=== PATIENT | female | born 1970 | race Caucasian/White ===

== ENCOUNTER 2021-01-23 08:28 | Outpatient (CLI) | payer OTHER, SELFPAY | END 2021-01-23 08:29 | disposition home or self-care (01) | LOC: WOUND 08:29 | PROVIDERS: Visit Provider Emergency Medicine | DX: S81.852A Open bite, left lower leg, initial encounter (principal); W55.01XA Bitten by cat, initial encounter | CPT/HCPCS: 11042; G0463 ==

== ENCOUNTER 2021-01-28 13:30 | Outpatient (CLI) | payer OTHER, SELFPAY ==
--- NOTE | 2021-01-28 | XR_ITS ---
WS: [id number] TIBIA-FIBULA LEFT TECHNIQUE: 2 views of the left tibia-fibula CLINICAL INFORMATION: NON PRESSURE CHRONIC ULCER LEFT LOWER LEG WITH FAT LAYERS EX COMPARISON: None. FINDINGS: No evidence of acute fracture dislocation. Normal tibiotalar joint. Normal visualized tibia and fibul a. Soft tissue edema lower leg. XR/XR tibia fibula LT 2V [id number] IMPRESSION: Soft tissue edema lower leg. No evidence of fracture or osteomyelitis.
== END 2021-01-28 13:31 | disposition home or self-care (01) ==
PROVIDERS: Visit Provider Emergency Medicine
DX: L97.822 Non-pressure chronic ulcer of other part of left lower leg with fat layer exposed (principal); R60.0 Localized edema
CPT/HCPCS: 73590

== ENCOUNTER 2021-01-30 08:51 | Outpatient (CLI) | payer OTHER, SELFPAY | END 2021-01-30 08:52 | disposition home or self-care (01) | LOC: WOUND 08:51 | PROVIDERS: Visit Provider Emergency Medicine | DX: L97.821 Non-pressure chronic ulcer of other part of left lower leg limited to breakdown of skin (principal); Z09 Encounter for follow-up examination after completed treatment for conditions other than malignant neoplasm | CPT/HCPCS: 99212; A6212 ==

== ENCOUNTER 2021-05-27 14:11 | Emergency (ER) | payer OTHER, SELFPAY ==
--- NOTE | 2021-05-27 14:12 | XR_ITS ---
WS: [id number] Portable AP upright chest, 05/27/2021 Clinical Data: chest pain Comparison: PA and lateral chest, 03/28/2014. Findings: No nodules, masses or effusions are seen. The heart is normal. The pulmonary vascularity is not increased. No pneumonia or pneumothorax is seen. XR/XR chest 1V portable [id number] Impression: Negative chest.
--- NOTE | 2021-05-27 14:12 | ECG_ITS ---
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 Measurements Intervals [place] Rate: 74 P: 49 [place]: 139 QRS: -15 QRSD: 88 T: -2 QT: 395 QTc: 439 Interpretive Statements SINUS RHYTHM VOLTAGE CRITERIA FOR LVH [MEETS CRITERIA IN ONE OF: R(aVL), S(V1), R(V5), R(V5/V6)+S(V1)] Compared to ECG 05/31/2014 10:31:27 Left ventricular hypertrophy now present Electronically Signed On 05-27-2021 17:20:08 CHECK PROCESSING CLERK by Karis Stewart M.D. [email or web address] [email or web address].[employer]aw[email or web address]/store/[id number]
[2021-05-27 14:23] VITALS: BP 119/78; PULSE 71; RESP 16; TEMP 36.3; O2SAT 100; BMI 24.2
--- NOTE | 2021-05-27 16:12 | ECG_ITS ---
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 Measurements Intervals [place] Rate: 64 P: 50 GA: 133 QRS: -12 QRSD: 97 T: 1 QT: 408 QTc: 424 Interpretive Statements SINUS RHYTHM VOLTAGE CRITERIA FOR LVH [MEETS CRITERIA IN ONE OF: R(aVL), S(V1), R(V5), R(V5/V6)+S(V1)] Compared to ECG 05/27/2021 14:19:59 No significant changes Electronically Signed On 05-27-2021 17:24:29 ORTHOPEDIC PHYSICIAN ASSISTANT by Karis Stewart M.D. [id number]
[2021-05-27 16:42] LABS: Basophils # 0.1 10^3/uL (0.0-0.1); Basophils % 0.9 %; Eosinophils # 0.1 10^3/uL (0.0-0.8); Eosinophils % 0.7 %; Hemoglobin 13.8 g/dL (11.5-15.3); Lymphocytes # 2.4 10^3/uL (0.8-4.8); Lymphocytes % 34.5 %; Mean Corpuscular HGB Conc 33.7 g/dL (30.0-36.0); Mean Corpuscular Hemoglobin 31.8 pg (28.0-34.0); Mean Corpuscular Volume 94.5 fl (81-99); Mean Platelet Volume 10.5 fL (7.4-10.4); Monocytes # 0.4 10^3/uL (0.2-0.9); Monocytes % 5.8 %; Neutrophils # 4.01 10^3/uL (1.8-7.7); Neutrophils % 57.8 %; Nucleated Red Blood Cells % 0 %; Platelet Count 243 10^3/cmm (130-400); Red Blood Count 4.34 10^6/uL (4.1-5.3); Red Cell Distribution Width 13.1 % (12.1-15.1); White Blood Count 6.9 10^3/uL (4.0-10.0)
[2021-05-27 16:59] VITALS: BP 116/73; PULSE 74; RESP 18; O2SAT 99
[2021-05-27 17:01] LABS: Troponin(5th) Baseline 6 ng/L (0-10)
[2021-05-27 17:02] LABS: Alanine Aminotransferase 29 U/L (0-33); Albumin Level 4.7 g/dL (3.5-5.2); Alkaline Phosphatase 99 IU/L (35-105); Anion Gap 14.6 (5-19); Aspartate Amino Transferase 24 U/L (0-32); Blood Urea Nitrogen 14 mg/dL (6-20); Carbon Dioxide 25 mmol/L (22-29); Chloride 99 mmol/L (98-107); Creatinine Clr Calc Pharmacy 84.3271; Globulin 2.4 g/dL (1.3-4.6); Glomerular Filtration Rate 76.2 mL/min (90-130); Glucose 100 mg/dL (65-115); Osmolality Calculated 281 mOsm/kg (285-295); Potassium 3.6 mmol/L (3.5-5.1); Sodium 135 mmol/L (136-145); Total Bilirubin 0.5 mg/dL (0.15-1.2); Total Protein 7.1 g/dL (6.6-8.7)
--- NOTE | 2021-05-27 17:15 | W.ED.ARRPALP ---
HPI - Arrhythmia/Palpitations General: Chief Complaint: Arrhythmia/Palpitations Stated Complaint: chest pain Time Seen by Provider: 05/27/21 17:02 Source: patient History of Present Illness: Patient comes in today with complaints of 3-week history of irregular heartbeat. Patient reports that her heart rate gets real slow at times. Patient has had a history of ablation due to atrial tachycardia. Patient appears well. Patient appears in no acute distress. Patient reports it was noted at the primary care office that her heart rate was erratic. Patient appears nontoxic. Patient appears in no pain. Review of Systems Const: Reports: fatigue Card: Reports: irregular heart rhythm Resp: Reports: dyspnea (Exertion) Physical Exam Const: COMMON NORMALS: no limitations and healthy appearing HENMT: THROAT: posterior oropharynx normal Neck/C-Spine: COMMON NORMALS: Thyroid normal THYROID: Thyroid normal Lymph: LYMPHATIC: no lymphadenopathy noted Resp: COMMON NORMALS: clear to auscultation bilaterally EFFORT & INSPECTION: Yes able to speak in complete sentences AUSCULTATION: clear to auscultation bilaterally Cardio: COMMON NORMALS: regular rate, regular rhythm and S1 normal heart sound present RATE: regular rate RHYTHM: regular rhythm HEART SOUNDS: S1 normal heart sound present GI: COMMON NORMALS: Soft to palpation PALPATION: Yes Soft to palpation and No Tenderness to palpation present (GI) Extremity: COMMON NORMALS: no clubbing, cyanosis or edema and no pedal edema Skin: COMMON NORMALS: no rashes or lesions noted GENERAL SKIN EXAM: no rashes or lesions noted Course Vital Signs: Vital signs: Vital Signs Temperature 97.3 F L 05/27/21 14:23 Pulse Rate 74 05/27/21 16:59 Respiratory Rate 18 05/27/21 16:59 Blood Pressure 116/73 05/27/21 16:59 Pulse Oximetry 99 05/27/21 16:59 MDM - Arrhythmia/Palpitations Medical Decision Making Patient comes in today with complaints of irregular heart rate with some dyspnea. Patient reports symptoms for the last 3 weeks. On exam lungs were clear to auscultation. Heart rate was regular. No edema was noted in the extremities. Differential diagnosis includes palpitations, anxiety, atrial fibrillation. EKG showed a sinus arrhythmia with a rate in the 70s. Laboratory values were unremarkable. Reviewed exam with patient with recommendations for follow-up with cardiology and Holter monitor. Patient reported understanding and agreed to plan. Case management was requested to assist with cardiology follow-up and arrangement for Holter monitor. Differential Diagnosis Likely palpitations, anxiety and artial fibrillation Lab Data : 05/27/21 16:28 05/27/21 16: Radiology Impressions Chest X-Ray 05/27/21 14:12 Impression: Negative chest. Laboratory Results WBC 6.9 10^3/uL (4.0-10.0) 05/27/21 16: RBC 4.34 10^6/uL (4.1-5.3) 05/27/21 16: Hgb 13.8 g/dL (11.5-15.3) 05/27/21 16: Hct 41.0 % (37.0-47.0) 05/27/21 16: MCV 94.5 fl (81-99) 05/27/21 16: MCH 31.8 pg (28.0-34.0) 05/27/21 16: MCHC 33.7 g/dL (30.0-36.0) 05/27/21 16: RDW 13.1 % (12.1-15.1) 05/27/21 16: Plt Count 243 10^3/cmm (130-400) 05/27/21 16: MPV 10.5 fL (7.4-10.4) H 05/27/21 16: Neut % (Auto) 57.8 % 05/27/21 16: Lymph % (Auto) 34.5 % 05/27/21 16: Coffee % (Auto) 5.8 % 05/27/21 16: Eos % (Auto) 0.7 % 05/27/21 16: Baso % (Auto) 0.9 % 05/27/21 16: Neut # (Auto) 4.01 10^3/uL (1.8-7.7) 05/27/21 16: Lymph # (Auto) 2.4 10^3/uL (0.8-4.8) 05/27/21 16: Coffee # (Auto) 0.4 10^3/uL (0.2-0.9) 05/27/21 16: Eos # (Auto) 0.1 10^3/uL (0.0-0.8) 05/27/21 16:28 Baso # (Auto) 0.1 10^3/uL (0.0-0.1) 05/27/21 16: Nucleated RBC % (auto) 0 % 05/27/21 16: Nucleated RBCs # 0.0 /100WBC 05/27/21 16:28 Sodium 135 mmol/L (136-145) L 05/27/21 16: Potassium 3.6 mmol/L (3.5-5.1) 05/27/21 16: Chloride 99 mmol/L (98-107) 05/27/21 16: Carbon Dioxide 25 mmol/L (22-29) 05/27/21 16: Anion Gap 14.6 (5-19) 05/27/21 16: BUN 14 mg/dL (6-20) 05/27/21 16: Creatinine 0.8 mg/dL (0.5-0.9) 05/27/21 16: GFR Calculation 76.2 mL/min (90-130) L 05/27/21 16: Glucose 100 mg/dL (65-115) 05/27/21 16: Calculated Osmolality 281 mOsm/kg (285-295) L 05/27/21 16: Calcium 9.0 mg/dL (8.5-10.5) 05/27/21 16: Total Bilirubin 0.5 mg/dL (0.15-1.2) 05/27/21 16: AST 24 U/L (0-32) 05/27/21 16: ALT 29 U/L (0-33) 05/27/21 16:28 Alkaline Phosphatase 99 IU/L (35-105) 05/27/21 16:28 Troponin T Baseline 6 ng/L (0-10) 05/27/21 16:28 Total Protein 7.1 g/dL (6.6-8.7) 05/27/21 16: Albumin 4.7 g/dL (3.5-5.2) 05/27/21 16: Globulin 2.4 g/dL (1.3-4.6) 05/27/21 16:28 Discharge Plan Discharge Patient Disposition: Home Clinical Impression: Sinus arrhythmia Condition: Stable Discharge Orders: Discharge ED (Routine); Ordered 05/27/21 Ordered By: Agustín Wang Discharge Diet: Usual diet Discharge Activity: Increase activity as tolerated Patient Instructions: Dyspnea (ED) Activity Restrictions/Additional Instructions: Home and rest. Case management will contact you tomorrow with assignment of Holter monitor, and cardiology follow-up. You will be wearing the Holter monitor for 7 days. Cardiology will most likely follow-up after the Holter monitor results. Return to the ER for worsening symptoms or new concerns. Follow-up with primary care as needed. Coding Level of Care Code ED Prep Cook for Chriss Vazquez
--- NOTE | 2021-05-30 08:15 | DCPLANNER ---
Addendum entered by Tsering Romero 06/27/21 09:27: Patient had a follow up appointment scheduled for 06.16.21 with [facility] - patient did attend appointment. Addendum entered by Tsering Romero 06/06/21 13:35: Patient had a follow up appointment scheduled for 06.02.21 with [facility] care - patient did attend appointment. Original Note: customer service manager had message to schedule a follow up appointment for patient with [facility] care for a holter monitor. customer service manager faxed a signed order to heart care, who will call patient with appointment information. customer service manager also had message to schedule a follow up appointment for patient with [facility]. customer service manager called [facility], spoke with Abbie, gave clinic patients information. A follow up appointment was scheduled for Wednesday, June 16, 2021 at 11:[address] Stewart. customer service manager attempted to call patient at phone number [phone], unable to speak with patient at this time, a voicemail was left for patient to return casey saw operator phone call.
== END 2021-05-27 17:31 | disposition home or self-care (01) ==
PROVIDERS: Physician Assistant; Emergency Provider Nurse Practitioner Family
DX: I49.8 Other specified cardiac arrhythmias (principal)
CPT/HCPCS: 71045; 80053; 84484; 85025; 93005; 99283

== ENCOUNTER 2022-10-27 09:50 | Outpatient (CLI) | payer OTHER, SELFPAY ==
--- NOTE | 2022-10-27 09:54 | MM_ITS ---
WS: [id number] VIEWS: MLO and CC views both breasts. 3D digital tomosynthesis is also included in this exam. Comparison made with prior exam of 01/18/2019. Findings: There was no sign of mass, architectural distortion or suspicious calcification in either breast. Th ere are areas of scattered fibroglandular density MM/[place] [id number] Impression: BI-RADS: 2-Benign finding. FOLLOW-UP: 1 Year Follow-up This mammogram was also analyzed by the Computer Aided Detection System R2 Imag e Health Communications Specialist.
== END 2022-10-27 09:51 | disposition home or self-care (01) ==
PROVIDERS: PCP Nurse Practitioner Family; Visit Provider Nurse Practitioner Family
DX: Z12.31 Encounter for screening mammogram for malignant neoplasm of breast (principal)
CPT/HCPCS: 77063; 77067

== ENCOUNTER 2024-09-03 16:21 | Emergency (ER) | payer OTHER, SELFPAY ==
[2024-09-03 16:27] VITALS: BP 123/88; PULSE 128; RESP 16; TEMP 36.6; O2SAT 97; BMI 25.8
--- NOTE | 2024-09-03 16:44 | XRR_ITS ---
PROCEDURE INFORMATION: Exam: XR Chest Exam date and time: 09/03/2024 5:46 PM Age: 54 years old Clinical indication: Chest pressure; Prior surgery; Surgery date: 6+ months; Chest pain; HX afib with ablation TECHNIQUE: Imaging protocol: Radiologic exam of the chest. Views: 1 view. COMPARISON: CR XR chest 1V portable [id number] 05/27/2021 2:34 PM FINDINGS: Lungs: Unremarkable. No consolidation. Pleural spaces: Unremarkable. No pleural effusion. No pneumothorax. Heart/Mediastinum: Unremarkable. No cardiomegaly. Bones/joints: Unremarkable. XR/XR chest 1V portable [id number] IMPRESSION: No acute findings.
--- NOTE | 2024-09-03 16:44 | ECG_ITS ---
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 Measurements Intervals [place] Rate: 129 P: 46 OR: 112 QRS: -10 QRSD: 85 T: 52 QT: 334 QTc: 490 Interpretive Statements SINUS TACHYCARDIA WITH SHORT OR INTERVAL VOLTAGE CRITERIA FOR LVH [MEETS CRITERIA IN ONE OF: R(aVL), S(V1), R(V5), R(V5/V6)+S(V1)] POSSIBLE SEPTAL MYOCARDIAL INFARCTION , OF INDETERMINATE AGE [30 ms Q WAVE IN V1/V2] Compared to ECG 05/27/2021 16:23:35 Short OR interval now present Myocardial infarct finding now present Sinus rhythm no longer present Electronically Signed On 09-04-2024 09:17:06 CDT by Cale Terry M.D. [id number]
[2024-09-03 17:20] LABS: Basophils % 0.4 %; Eosinophils % 0.2 %; Hematocrit 50.1 % (36-47); Lymphocytes # 1.4 10^3/uL (0.8-4.8); Lymphocytes % 27.9 %; Mean Corpuscular HGB Conc 34.1 g/dL (30-55); Mean Corpuscular Hemoglobin 30.6 pg (27-33); Mean Corpuscular Volume 89.6 fl (85-98); Mean Platelet Volume 10.1 fL (7.4-10.4); Monocytes # 0.6 10^3/uL (0.2-0.9); Monocytes % 11.9 %; Neutrophils # 3.04 10^3/uL (1.8-7.7); Neutrophils % 59.4 %; Nucleated Red Blood Cells % 0 %; Platelet Count 271 10^3/cmm (157-399); Red Blood Count 5.59 10^6/uL (3.85-5.65); Red Cell Distribution Width 12.4 % (12.1-15.1); White Blood Count 5.12 10^3/uL (3.29-11.43)
[2024-09-03 17:33] VITALS: BP 138/93; PULSE 110; O2SAT 94
[2024-09-03 17:39] LABS: Alanine Aminotransferase 29 U/L (0-33); Albumin Level 4.9 g/dL (3.5-5.2); Alkaline Phosphatase 118 U/L (35-105); Aspartate Amino Transferase 28 U/L (0-32); Blood Urea Nitrogen 25 mg/dL (6-20); Calcium 9.8 mg/dL (8.5-10.5); Carbon Dioxide 16 mmol/L (22-29); Chloride 100 mmol/L (98-107); Globulin 3.2 g/dL (1.3-4.6); Glomerular Filtration Rate 47.2 mL/min (90-130); Glucose 105 mg/dL (65-115); Osmolality Calculated 285 mOsm/kg (285-295); Sodium 135 mmol/L (136-145); Total Bilirubin 0.4 mg/dL (0.15-1.2); Total Protein 8.1 g/dL (6.6-8.7)
[2024-09-03 17:40] LABS: Troponin(5th) Baseline 9 ng/L (0-10)
[2024-09-03 17:41] LABS: Creatinine Clr Calc Pharmacy 55.9355
--- NOTE | 2024-09-03 17:59 | W.ED.CHESTPA ---
Documented by User: Jake Fishman DO 09/04/24 11:00 HPI - Chest Pain General: Chief Complaint: Chest Pain Stated Complaint: Chest farhan hunter sent Time Seen by Provider: 09/03/24 17:30 History of Present Illness: 54-year-old female presents emergency room complaining of chest pain that began last night. She has some diarrhea with that as well she complains of left posterior chest pain radiating into her shoulder and her back she has a history of a previous ablation for A-fib she is not on any oral anticoagulants now she is on metoprolol which she did not take this morning because of her diarrhea. States intermittently she has been running a fever as well. She denies any hematochezia or melena. No vomiting. No dysuria urgency or frequent Associated symptoms: Deny abdominal pain, dyspnea or fever(s) Related Data Home Medications ?Medication ?Instructions ?Recorded ?Confirmed aspirin 81 mg tablet,delayed 81 mg PO DAILY 10/14/21 release (Adult Low Dose Aspirin) doxycycline hyclate 50 mg capsule 50 mg PO DAILY PRN 10/14/21 levothyroxine 50 mcg tablet 50 mcg PO DAILY 10/14/21 magnesium oxide 400 mg PO DAILY 10/14/21 metoprolol succinate 50 mg 50 mg PO DAILY 10/14/21 tablet,extended release 24 hr potassium gluconate 595 mg (99 mg) 595 mg PO DAILY 10/14/21 tablet rosuvastatin 10 mg tablet 10 mg PO DAILY 10/14/21 omeprazole 20 mg tablet,delayed 20 mg PO DAILY 10/13/22 release Allergies Allergy/AdvReac Type Severity Reaction Status Date / Time butorphanol (From Stadol) Allergy ALGY-Anaphy Verified 06/16/21 11:14 laxis cephalexin (From Keflex) Allergy Unknown Verified 06/16/21 11:14 meperidine (From Demerol) Allergy ALGY-Anaphy Verified 06/16/21 11:14 laxis Penicillins Allergy ALGY-Anaphy Verified 06/16/21 11:14 laxis Sulfa (Sulfonamide Allergy ALGY-Anaphy Verified 06/16/21 11:14 Antibiotics) laxis Review of Systems Const: Denies: fever(s) or chills Card: Reports: chest pain Resp: Denies: dyspnea GI: Denies: abdominal pain : Denies: dysuria, urinary frequency or urinary urgency Musc: Denies: neck pain or back pain Skin/Breast: Denies: rash PFSH ED PFSH: Medical History FH: premature coronary heart disease Hypothyroidism Paroxysmal SVT (supraventricular tachycardia) Surgical History S/P ablation of accessory bypass tract [address] Carty at [facility] Social History Smoking and tobacco/nicotine status: never used tobacco/nicotine Physical Exam Const: GENERAL APPEARANCE: cooperative ORIENTATION/CONSCIOUSNESS: Yes awake, Yes oriented to person, Yes oriented to place and Yes oriented to time HENMT: COMMON NORMALS: normocephalic, atraumatic and hearing grossly normal bilaterally HEAD & SCALP: normocephalic and atraumatic Resp: COMMON NORMALS: normal respiratory effort, No retractions, No use of accessory muscles and clear to auscultation bilaterally AUSCULTATION: clear to auscultation bilaterally Cardio: COMMON NORMALS: regular rate, regular rhythm and No murmurs present (Cardio) RATE: regular rate RHYTHM: regular rhythm GI: COMMON NORMALS: Soft to palpation and No hepatosplenomegaly present AUSCULTATION: Yes normoactive bowel sounds PALPATION: Yes Soft to palpation, No Tenderness to palpation present (GI), No Guarding due to palpation present (GI) and Yes No hepatosplenomegaly present Extremity: COMMON NORMALS: normal to inspection, capillary refill normal, no clubbing, cyanosis or edema, no calf tenderness and no pedal edema Neuro: SENSORIUM/ORIENTATION: Yes oriented to person, Yes oriented to place and Yes oriented to time Skin: COMMON NORMALS: no rashes or lesions noted GENERAL SKIN EXAM: no rashes or lesions noted Course Vital Signs: Vital signs: Vital Signs Temperature 97.9 F 09/03/24 16:27 Pulse Rate 82 09/03/24 20:55 Respiratory Rate 20 H 09/03/24 19:39 Blood Pressure 111/61 09/03/24 20:55 Pulse Oximetry 95 09/03/24 20:55 Oxygen Delivery Me thod Room Air 09/03/24 19:39 MDM - Chest Pain Medical Decision Making Care signed out to Dr. Donahue at change of shift. See final notes for diagnosis and disposition. Lab Data 09/03/24 17:02 09/03/24 17:02 Radiology Impressions Chest X-Ray 09/03/24 16:44 IMPRESSION: No acute findings. Laboratory Results WBC 5.12 10^3/uL (3.29-11.43) 09/03/24 17:02 RBC 5.59 10^6/uL (3.85-5.65) 09/03/24 17:02 Hgb 17.10 g/dL (11.27-16.99) H 09/03/24 17:02 Hct 50.1 % (36-47) H 09/03/24 17:02 MCV 89.6 fl (85-98) 09/03/24 17:02 MCH 30.6 pg (27-33) 09/03/24 17:02 MCHC 34.1 g/dL (30-55) 09/03/24 17:02 RDW 12.4 % (12.1-15.1) 09/03/24 17:02 Plt Count 271 10^3/cmm (157-399) 09/03/24 17:02 MPV 10.1 fL (7.4-10.4) 09/03/24 17:02 Neut % (Auto) 59.4 % 09/03/24 17:02 Lymph % (Auto) 27.9 % 09/03/24 17:02 [place] % (Auto) 11.9 % 09/03/24 17:02 Eos % (Auto) 0.2 % 09/03/24 17:02 Baso % (Auto) 0.4 % 09/03/24 17:02 Neut # (Auto) 3.04 10^3/uL (1.8-7.7) 09/03/24 17:02 Lymph # (Auto) 1.4 10^3/uL (0.8-4.8) 09/03/24 17:02 [place] # (Auto) 0.6 10^3/uL (0.2-0.9) 09/03/24 17:02 Eos # (Auto) 0.0 10^3/uL (0.0-0.8) 09/03/24 17:02 Baso # (Auto) 0.0 10^3/uL (0.0-0.1) 09/03/24 17:02 Nucleated RBC % (auto) 0 % 09/03/24 17:02 Nucleated RBCs # 0.0 /100WBC 09/03/24 17:02 Sodium 135 mmol/L (136-145) L 09/03/24 17:02 Potassium 4.0 mmol/L (3.5-5.1) 09/03/24 17:02 Chloride 100 mmol/L (98-107) 09/03/24 17:02 Carbon Dioxide 16 mmol/L (22-29) L 09/03/24 17:02 Anion Gap 23.0 (5-19) H 09/03/24 17:02 BUN 25 mg/dL (6-20) H 09/03/24 17:02 Creatinine 1.2 mg/dL (0.5-0.9) H 09/03/24 17:02 GFR Calculation 47.2 mL/min (90-130) L 09/03/24 17:02 Glucose 105 mg/dL (65-115) 09/03/24 17:02 Calculated Osmolality 285 mOsm/kg (285-295) 09/03/24 17:02 Calcium 9.8 mg/dL (8.5-10.5) 09/03/24 17:02 Total Bilirubin 0.4 mg/dL (0.15-1.2) 09/03/24 17:02 AST 28 U/L (0-32) 09/03/24 17:02 ALT 29 U/L (0-33) 09/03/24 17:02 Alkaline Phosphatase 118 U/L (35-105) H 09/03/24 17:02 Troponin T Baseline 9 ng/L (0-10) 09/03/24 17:02 Troponin T 120 Minute 8.50 ng/L (0-10) 09/03/24 18:55 Delta Troponin T -0.50 ABS# (0-10) L 09/03/24 18:55 Total Protein 8.1 g/dL (6.6-8.7) 09/03/24 17:02 Albumin 4.9 g/dL (3.5-5.2) 09/03/24 17:02 Globulin 3.2 g/dL (1.3-4.6) 09/03/24 17:02 Discharge Plan Discharge Patient Disposition: Home Clinical Impression: Sinus tachycardia, Acute dehydration Condition: Stable Prescriptions: No Action doxycycline hyclate 50 mg capsule 50 mg PO DAILY PRN levothyroxine 50 mcg tablet 50 mcg PO DAILY metoprolol succinate 50 mg tablet extended release 24 hr 50 mg PO DAILY rosuvastatin 10 mg tablet 10 mg PO DAILY aspirin [Adult Low Dose Aspirin] 81 mg tablet,delayed release (DR/EC) 81 mg PO DAILY magnesium oxide 400 mg magnesium capsule 400 mg PO DAILY potassium gluconate 595 mg (99 mg) tablet 595 mg PO DAILY omeprazole 20 mg tablet,delayed release (DR/EC) 20 mg PO DAILY Discharge Orders: Discharge ED (Routine); Ordered 09/03/24 Ordered By: Rubens Donahue Referrals: Nayeli Lynch FNP [Primary Care Provider, Unknown] Patient Instructions: Dehydration (ED), Tachycardia (ED), Opioid Safety, Pain Management Print Language: Sudanese Coding Level of Care Code ED Business Office Director for Chg Fwd Documented by User: Rubens Donahue DO 09/03/24 21:51 HPI - Chest Pain General: Chief Complaint: Chest Pain Stated Complaint: Chest dale, real [place] sent Time Seen by Provider: 09/03/24 17:30 Related Data Home Medications ?Medication ?Instructions ?Recorded ?Confirmed aspirin 81 mg tablet,delayed 81 mg PO DAILY 10/14/21 release (Adult Low Dose Aspirin) doxycycline hyclate 50 mg capsule 50 mg PO DAILY PRN 10/14/21 levothyroxine 50 mcg tablet 50 mcg PO DAILY 10/14/21 magnesium oxide 400 mg PO DAILY 10/14/21 metoprolol succinate 50 mg 50 mg PO DAILY 10/14/21 tablet,extended release 24 hr potassium gluconate 595 mg (99 mg) 595 mg PO DAILY 10/14/21 tablet rosuvastatin 10 mg tablet 10 mg PO DAILY 10/14/21 omeprazole 20 mg tablet,delayed 20 mg PO DAILY 10/13/22 release Allergies Allergy/AdvReac Type Severity Reaction Status Date / Time butorphanol (From Stadol) Allergy ALGY-Anaphy Verified 06/16/21 11:14 laxis cephalexin (From Keflex) Allergy Unknown Verified 06/16/21 11:14 meperidine (From Demerol) Allergy ALGY-Anaphy Verified 06/16/21 11:14 laxis Penicillins Allergy ALGY-Anaphy Verified 06/16/21 11:14 laxis Sulfa (Sulfonamide Allergy ALGY-Anaphy Verified 06/16/21 11:14 Antibiotics) laxis PFSH ED PFSH: Medical History FH: premature coronary heart disease Hypothyroidism Paroxysmal SVT (supraventricular tachycardia) Surgical History S/P ablation of accessory bypass tract [address] Carty at [facility] Social History Smoking and tobacco/nicotine status: never used tobacco/nicotine Course Vital Signs: Vital signs: Vital Signs Temperature 97.9 F 09/03/24 16:27 Pulse Rate 82 09/03/24 20:55 Respiratory Rate 20 H 09/03/24 19:39 Blood Pressure 111/61 09/03/24 20:55 Pulse Oximetry 95 09/03/24 20:55 Oxygen Delivery Me thod Room Air 09/03/24 19:39 MDM - Chest Pain Medical Decision Making Care signed out to Dr. Donahue at change of shift. See final notes for diagnosis and disposition. Patient is hemoconcentrated. She has a CBC showing hemoglobin of 17. Creatinine is 1.2. Her bicarbonate level is 16. I will point to dehydration. She received 1.5 L of fluid, is feeling improved. Heart rate is down below 100 now. Her chest x-ray is negative. Her delta troponin is normal. EKG showed sinus tachycardia, with no acute ST wave changes. She will be discharged to return for any worsening symptoms. She is encouraged to drink plenty of clear liquids especially for the next 48 hours. Outpatient follow-up. Lab Data 09/03/24 17:02 09/03/24 17:02 Radiology Impressions Chest X-Ray 09/03/24 16:44 IMPRESSION: No acute findings. Laboratory Results WBC 5.12 10^3/uL (3.29-11.43) 09/03/24 17:02 RBC 5.59 10^6/uL (3.85-5.65) 09/03/24 17:02 Hgb 17.10 g/dL (11.27-16.99) H 09/03/24 17:02 Hct 50.1 % (36-47) H 09/03/24 17:02 MCV 89.6 fl (85-98) 09/03/24 17:02 MCH 30.6 pg (27-33) 09/03/24 17:02 MCHC 34.1 g/dL (30-55) 09/03/24 17:02 RDW 12.4 % (12.1-15.1) 09/03/24 17:02 Plt Count 271 10^3/cmm (157-399) 09/03/24 17:02 MPV 10.1 fL (7.4-10.4) 09/03/24 17:02 Neut % (Auto) 59.4 % 09/03/24 17:02 Lymph % (Auto) 27.9 % 09/03/24 17:02 [place] % (Auto) 11.9 % 09/03/24 17:02 Eos % (Auto) 0.2 % 09/03/24 17:02 Baso % (Auto) 0.4 % 09/03/24 17:02 Neut # (Auto) 3.04 10^3/uL (1.8-7.7) 09/03/24 17:02 Lymph # (Auto) 1.4 10^3/uL (0.8-4.8) 09/03/24 17:02 [place] # (Auto) 0.6 10^3/uL (0.2-0.9) 09/03/24 17:02 Eos # (Auto) 0.0 10^3/uL (0.0-0.8) 09/03/24 17:02 Baso # (Auto) 0.0 10^3/uL (0.0-0.1) 09/03/24 17:02 Nucleated RBC % (auto) 0 % 09/03/24 17:02 Nucleated RBCs # 0.0 /100WBC 09/03/24 17:02 Sodium 135 mmol/L (136-145) L 09/03/24 17:02 Potassium 4.0 mmol/L (3.5-5.1) 09/03/24 17:02 Chloride 100 mmol/L (98-107) 09/03/24 17:02 Carbon Dioxide 16 mmol/L (22-29) L 09/03/24 17:02 Anion Gap 23.0 (5-19) H 09/03/24 17:02 BUN 25 mg/dL (6-20) H 09/03/24 17:02 Creatinine 1.2 mg/dL (0.5-0.9) H 09/03/24 17:02 GFR Calculation 47.2 mL/min (90-130) L 09/03/24 17:02 Glucose 105 mg/dL (65-115) 09/03/24 17:02 Calculated Osmolality 285 mOsm/kg (285-295) 09/03/24 17:02 Calcium 9.8 mg/dL (8.5-10.5) 09/03/24 17:02 Total Bilirubin 0.4 mg/dL (0.15-1.2) 09/03/24 17:02 AST 28 U/L (0-32) 09/03/24 17:02 ALT 29 U/L (0-33) 09/03/24 17:02 Alkaline Phosphatase 118 U/L (35-105) H 09/03/24 17:02 Troponin T Baseline 9 ng/L (0-10) 09/03/24 17:02 Troponin T 120 Minute 8.50 ng/L (0-10) 09/03/24 18:55 Delta Troponin T -0.50 ABS# (0-10) L 09/03/24 18:55 Total Protein 8.1 g/dL (6.6-8.7) 09/03/24 17:02 Albumin 4.9 g/dL (3.5-5.2) 09/03/24 17:02 Globulin 3.2 g/dL (1.3-4.6) 09/03/24 17:02 All radiology interpretation(s) finalized by discharge Discharge Plan Discharge Patient Disposition: Home Clinical Impression: Sinus tachycardia, Acute dehydration Condition: Stable Prescriptions: No Action doxycycline hyclate 50 mg capsule 50 mg PO DAILY PRN levothyroxine 50 mcg tablet 50 mcg PO DAILY metoprolol succinate 50 mg tablet extended release 24 hr 50 mg PO DAILY rosuvastatin 10 mg tablet 10 mg PO DAILY aspirin [Adult Low Dose Aspirin] 81 mg tablet,delayed release (DR/EC) 81 mg PO DAILY magnesium oxide 400 mg magnesium capsule 400 mg PO DAILY potassium gluconate 595 mg (99 mg) tablet 595 mg PO DAILY omeprazole 20 mg tablet,delayed release (DR/EC) 20 mg PO DAILY Discharge Orders: Discharge ED (Routine); Ordered 09/03/24 Ordered By: Rubens Donahue Referrals: Nayeli Lynch FNP [Primary Care Provider, Unknown] Patient Instructions: Dehydration (ED), Tachycardia (ED), Opioid Safety, Pain Management Print Language: Sudanese Coding Level of Care Code ED Business Office Director for Chriss Vazquez
[2024-09-03 18:03] VITALS: BP 112/74; PULSE 114; O2SAT 96
[2024-09-03] MEDS: sodium chloride 0.9% 1,000 ML 999 ML IV (18:35)
[2024-09-03] MEDS: aspirin 81 mg Chew Tablet 324 MG PO (18:36)
[2024-09-03] MEDS: metoprolol tartrate 1 mg/1 mL SDV 5 mL 2.5 MG IVP (18:38)
--- NOTE | 2024-09-03 18:44 | ECG_ITS ---
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 Measurements Intervals [place] Rate: 84 P: 59 ND: 149 QRS: -23 QRSD: 92 T: 31 QT: 374 QTc: 442 Interpretive Statements SINUS RHYTHM VOLTAGE CRITERIA FOR LVH [MEETS CRITERIA IN ONE OF: R(aVL), S(V1), R(V5), R(V5/V6)+S(V1)] POSSIBLE SEPTAL MYOCARDIAL INFARCTION , OF INDETERMINATE AGE [30 ms Q WAVE IN V1/V2] Compared to ECG 09/03/2024 16:26:13 Sinus tachycardia no longer present Short ND interval no longer present Myocardial infarct finding still present Electronically Signed On 09-04-2024 10:21:37 CDT by Cale Terry M.[email or web address]
[2024-09-03 19:00] VITALS: BP 109/80; PULSE 82; RESP 20; O2SAT 100
[2024-09-03 19:39] VITALS: BP 112/77; PULSE 86; RESP 20; O2SAT 95
[2024-09-03] MEDS: sodium chloride 0.9% 500 ML 999 ML IV (19:51)
[2024-09-03 20:55] VITALS: BP 111/61; PULSE 82; O2SAT 95
== END 2024-09-03 20:56 | disposition home or self-care (01) ==
PROVIDERS: Emergency Provider Family Medicine; PCP Nurse Practitioner Family
DX: R00.0 Tachycardia, unspecified (principal); E86.0 Dehydration; Z79.82 Long term (current) use of aspirin
CPT/HCPCS: 36415; 71045; 80053; 84484; 85025; 93005; 96361; 96374; 99285; J3490; J7030; J9999